=== PATIENT | male | born 1985 | race Caucasian/White ===

== ENCOUNTER → 2019-07-28 10:24 | Outpatient (BNVA) | payer BC, SELFPAY | PROVIDERS: Family Provider Family Medicine; Visit Provider Nurse Practitioner Family | DX: J02.9 Acute pharyngitis, unspecified (principal); Z20.818 Contact with and (suspected) exposure to other bacterial communicable diseases | CPT/HCPCS: 87071; 87880 ==

== ENCOUNTER 2020-06-01 12:53 | Emergency (ER) | payer BC, SELFPAY ==
[2020-06-01 13:06] VITALS: BP 141/95; PULSE 107; RESP 20; TEMP 36.6; O2SAT 99; BMI 32.5
--- NOTE | 2020-06-01 13:22 | US_ITS ---
WS: [id number] TESTICULAR ULTRASOUND HISTORY: testicular pain COMPARISON: None available. TECHNIQUE: Real-time and color Doppler imaging or utilized to perform a testicular ultrasound. Right testicle: 4.9 cm x 3.0 cm x 3.5 cm. Normal size and echogenicity. No mass or torsion. Normal color Doppler is present throughout. Systolic and diastolic velocities are both present. Moderate to large simple hydrocele. Right epididymis: Normal epididymis with no increased vascularity. Left testicle: 3.5 cm x 2.7 cm x 3.1 cm. Normal size and echogenicity. No mass or torsion. There is increased Doppler within the LEFT testicle as compared to the RIGHT. There is also variable echogenicity within the LEFT epididymis and slight increased vascularity suggesting epididymitis. No significant hydrocele. US/US scrotum [id number] IMPRESSION: 1. No testicular mass or torsion. 2. Mild LEFT epididymal orchitis. 3. Moderate to large simple RIGHT hydrocele.
[2020-06-01 13:28] VITALS: BP 143/91; PULSE 109; RESP 16; O2SAT 97
--- NOTE | 2020-06-01 13:59 | W.ED.MALEGU ---
HPI - Male Genitourinary General: Chief complaint: Urogenital-Male Stated complaint: significant pain in groin Time Seen by Provider: 06/01/20 13:17 Source: patient Mode of arrival: ambulatory Limitations: no limitations History of Present Illness: HPI Narrative: This is a 35-year-old male with no significant past medical history who presents to the emergency department with testicular pain that started about 3 months ago. It has been intermittent in nature however today it has been constant and is the worst that it has ever been. He denies any testicular trauma but said about 3 months ago he started running he attributed his initial symptoms to this. His friend was diagnosed with testicular cancer after having similar symptoms so he is concerned about this. MD Complaint: testicle pain Onset (ago): month(s) (3) Duration: intermittent Location: right testicle and left testicle Quality: aching Exacerbating factors: movement Associated symptoms: Deny discharge, dysuria, fevers/chills, hematuria, nausea, rash, swelling, urinary incontinence, urinary retention, mass or vomiting Review of Systems General: Reports: 10 or more systems reviewed and unremarkable except in HPI and below GI: Denies: nausea or vomiting : Denies: dysuria, urinary incontinence or hematuria PFSH ED PFSH: Social History (Reviewed 06/01/20 @ 14:06 by Portia Lemus MD, [facility] [place]) Smoking and tobacco status: never smoked Physical Exam Const: COMMON NORMALS: no acute distress, average body habitus, patient oriented x3, no limitations, healthy appearing, alert and well nourished Neck/C-Spine: COMMON NORMALS: no meningeal signs and no JVD Resp: COMMON NORMALS: normal respiratory effort, No retractions, No use of accessory muscles, clear to auscultation bilaterally and percussion normal AUSCULTATION: clear to auscultation bilaterally PERCUSSION: percussion normal Cardio: COMMON NORMALS: no JVD, regular rate, regular rhythm, S1 normal heart sound present, S2 normal heart sound present, No gallops present (Cardio), No clicks present (Cardio), No murmurs present (Cardio), No rub (Cardio) and Peripheral pulses 2+ throughout RATE: regular rate RHYTHM: regular rhythm HEART SOUNDS: S1 normal heart sound present and S2 normal heart sound present PERIPHERAL PULSES: Peripheral pulses 2+ throughout GI: COMMON NORMALS: Normal to inspection, nondistended, normoactive bowel sounds present, Soft to palpation, non-tender, No hepatosplenomegaly present, no masses and no bruits PALPATION: Yes Soft to palpation and Yes No hepatosplenomegaly present Extremity: COMMON NORMALS: normal to inspection, full ROM, capillary refill normal, no calf tenderness and no pedal edema Neuro: COMMON NORMALS: patient oriented x3 SENSORIUM/ORIENTATION: Yes alert MENINGEAL SIGNS: Yes no meningeal signs Course Reevaluation(s): Reevaluation #1: Discussed his imaging findings with him. He has ultrasound findings of epididymoorchitis as well as a hydrocele. Discussed his risk factors for STIs with him and he is low risk so he will be discharged home with a prescription for levofloxacin. He voiced understanding and he is in agreement with the plan. Time: 14:59 Vital Signs: Vital signs: Vital Signs Temperature 97.8 F 06/01/20 13:06 Pulse Rate 99 06/01/20 14:40 Respiratory Rate 16 06/01/20 14:40 Blood Pressure 152/100 06/01/20 14:40 Pulse Oximetry 97 06/01/20 14:40 MDM - Male MDM Narrative: Medical decision making narrative: 35-year-old male who presents to the emergency department with testicular pain evaluation in the emergency department with ultrasound is consistent with acute epididymoorchitis and he is discharged home with a prescription for oral levofloxacin. Medical Records: Attestation: I reviewed the patient's medical records. Imaging Data: US: Attestation: I personally reviewed and interpreted this imaging study as follows: Radiologist's impression: [address] [address] Ultrasound Report Signed Patient: Raul Wright #: [id number] : 1985Acct#:[id number] Age/Sex: 35 / MADM Date: 06/01/20 Loc: ERRoom/Bed: Attending Dr: Ordering Provider/Ordering MD: Portia Lemus MD, [facility] [place] Date of Service: 06/01/20 Procedure(s): US scrotum [id number] Accession Number(s): [id number] Report Number: [id number] WS: [id number] TESTICULAR ULTRASOUND HISTORY: testicular pain COMPARISON: None available. TECHNIQUE: Real-time and color Doppler imaging or utilized to perform a testicular ultrasound. Right testicle: 4.9 cm x 3.0 cm x 3.5 cm. Normal size and echogenicity. No mass or torsion. Normal color Doppler is present throughout. Systolic and diastolic velocities are both present. Moderate to large simple hydrocele. Right epididymis: Normal epididymis with no increased vascularity. Left testicle: 3.5 cm x 2.7 cm x 3.1 cm. Normal size and echogenicity. No mass or torsion. There is increased Doppler within the LEFT testicle as compared to the RIGHT. There is also variable echogenicity within the LEFT epididymis and slight increased vascularity suggesting epididymitis. No significant hydrocele. US/US scrotum [id number] IMPRESSION: 1. No testicular mass or torsion. 2. Mild LEFT epididymal orchitis. 3. Moderate to large simple RIGHT hydrocele. Dictated By:Tequila Treadwell DO Signed By:Tequila Treadwell DOSigned Date/Time:06/01/201447 DD/ 44 Discharge Plan Discharge Patient Disposition: Home Clinical Impression: Acute epididymo-orchitis, Acquired hydrocele Condition: Stable Prescriptions: New levofloxacin 500 mg tablet 500 mg PO DAILY 10 Days Qty: 10 RF: 0 Continued Zyrtec 10 mg Tablet 10 mg PO DAILY PRN (Reason: Allergy Symptoms) RF: 0 aspirin 325 mg Tablet 325 mg PO PRN RF: 0 fluticasone propionate 50 mcg/actuation [place],Suspension 2 spray INTRANASAL DAILY RF: 0 Discharge Orders: Discharge ED (Routine); Ordered 06/01/20 Ordered By: Portia Lemus Referrals: Rodrigo Aj MD [Primary Care Provider] - 1-3 days Discharge Diet: Usual diet Discharge Activity: Increase activity as tolerated Patient Instructions: Epididymo-orchitis (ED), Hydrocele (ED) Activity Restrictions/Additional Instructions: Return for any new or worsening symptoms. Follow-up with your primary care provider within 3 days. Take the medication as prescribed. Coding Level of Care Code ED Pit Crane Operator for Chg Fwd Exam Detailed
[2020-06-01 14:40] VITALS: BP 152/100; PULSE 99; RESP 16; O2SAT 97
== END 2020-06-01 15:18 | disposition home or self-care (01) ==
PROVIDERS: Emergency Provider Family Medicine; PCP Family Medicine
DX: N45.3 Epididymo-orchitis (principal); N43.3 Hydrocele, unspecified; Z79.82 Long term (current) use of aspirin
CPT/HCPCS: 76870; 99282